=== PATIENT | female | born 2000 | race Caucasian/White ===

== ENCOUNTER 2021-05-21 22:05 | Observation (INO) | payer MEDICAID | END 2021-05-21 23:40 | disposition home or self-care (01) | LOC: SPU 22:05 | PROVIDERS: ADMIT Obstetrics & Gynecology; ATTEND Obstetrics & Gynecology | DX: O36.8130 Decreased fetal movements, third trimester, not applicable or unspecified (principal); O62.9 Abnormality of forces of labor, unspecified; Z3A.39 39 weeks gestation of pregnancy | CPT/HCPCS: G0378 ==